=== PATIENT | male | born 1975 | race Hispanic/Latino ===

== ENCOUNTER → 2020-11-19 | Day surgery (SDC) | payer BC ==
[~2020-11-19] MED LIST: DEXAMETHASONE SOD PHOS INJ 4 MG/ML VIAL ONE; EPHEDRINE SULFATE INJ 50 MG/ML VIAL ONE; KETOROLAC TROMETHAMINE 30 MG/ML VIAL ONE; KRILL OIL500 MG; LIDOCAINE HCL 2% LOCAL INJ 5 ML SDV VIAL INJ ONE; LISINOPRIL10 MG PO; MULTI-VITAMIN1 EACH PO; NAPROSYN500 MG PO; ONDANSETRON HCL INJ 2MG/ML 2ML 2 MG/ML VIAL ONE; POVIDONE IODINE 0.05% 0.05 % ML PO ONE; PROPOFOL IV EMULSION 10 MG/ML 20 ML VIAL ONE
[2020-11-19 10:45] VITALS: BP 125/74
== END | disposition home or self-care (01) ==
LOC: OR 07:49
PROVIDERS: ATTEND Specialist
DX: S83.232A Complex tear of medial meniscus, current injury, left knee, initial encounter (principal); M23.301 Other meniscus derangements, unspecified lateral meniscus, left knee; M65.9 Synovitis and tenosynovitis, unspecified; I10 Essential (primary) hypertension; X58.XXXA Exposure to other specified factors, initial encounter; Z68.32 Body mass index [BMI] 32.0-32.9, adult
CPT/HCPCS: 29881; 93005; J0690; J1100; J1885; J2001; J2405; J2704; U0002

== ENCOUNTER 2021-07-27 10:41 | Emergency (ER) | payer BC ==
[~2021-07-27] VITALS: Ht 177.8 cm; Wt 105.0 kg
[~2021-07-27 10:41] MED LIST changes: -DEXAMETHASONE SOD PHOS INJ 4 MG/ML VIAL ONE; -EPHEDRINE SULFATE INJ 50 MG/ML VIAL ONE; -KETOROLAC TROMETHAMINE 30 MG/ML VIAL ONE; -LIDOCAINE HCL 2% LOCAL INJ 5 ML SDV VIAL INJ ONE; -ONDANSETRON HCL INJ 2MG/ML 2ML 2 MG/ML VIAL ONE; -POVIDONE IODINE 0.05% 0.05 % ML PO ONE; -PROPOFOL IV EMULSION 10 MG/ML 20 ML VIAL ONE
[2021-07-27] MEDS ORDERED: SODIUM CHLORIDE 0.9% 1000ML 1,000 ML IV STA (11:10)
[2021-07-27] MEDS ORDERED: FAMOTIDINE 20 MG/2 ML VIAL IV ONE ×2 (11:15→11:32)
[2021-07-27] MEDS ORDERED: KETOROLAC TROMETHAMINE 30 MG/ML VIAL IV ONE (11:15)
[2021-07-27] MEDS ORDERED: KETOROLAC TROMETHAMINE 30 MG/ML VIAL ONE (11:32)
[2021-07-27] MEDS ORDERED: SODIUM CHLORIDE 0.9% 1000ML 1,000 ML ONE (11:32)
[2021-07-27] MEDS ORDERED: ONDANSETRON HCL INJ 2MG/ML 2ML 2 MG/ML VIAL ONE (11:37)
[2021-07-27] MEDS ORDERED: FAMOTIDINE20 MG PO (12:26)
[2021-07-27] MEDS ORDERED: ONDANSETRON ODT4 MG PO (12:26)
[2021-07-27] MEDS ORDERED: IBUPROFEN IB200 MG PO (12:26)
[2021-07-27] MEDS ORDERED: ACETAMINOPHEN-1 EAC4 PO (12:26)
== END 2021-07-27 12:46 | disposition home or self-care (01) ==
LOC: FSED 10:49
DX: R10.31 Right lower quadrant pain (principal); N13.2 Hydronephrosis with renal and ureteral calculous obstruction; R11.2 Nausea with vomiting, unspecified; I10 Essential (primary) hypertension; K76.0 Fatty (change of) liver, not elsewhere classified; R16.1 Splenomegaly, not elsewhere classified
CPT/HCPCS: 74176; 80053; 81003; 85025; 96374; 96375; 99284; J1885; J2405; J7030

== ENCOUNTER 2021-09-16 08:00 | Outpatient (RCR) | payer BC ==
[~2021-09-16 08:00] MED LIST changes: +ACETAMINOPHEN-1 EAC4 PO; +FAMOTIDINE20 MG PO; +IBUPROFEN IB200 MG PO; +ONDANSETRON ODT4 MG PO
== END 2021-09-20 ==
LOC: PT 08:00
PROVIDERS: ATTEND Specialist
DX: M72.2 Plantar fascial fibromatosis (principal); M62.81 Muscle weakness (generalized); M79.672 Pain in left foot; M25.675 Stiffness of left foot, not elsewhere classified

== ENCOUNTER 2022-04-17 07:00 | Outpatient (RCR) | payer BC | END 2022-04-22 | LOC: PT 07:00 | PROVIDERS: ATTEND Specialist | DX: M72.2 Plantar fascial fibromatosis (principal) ==

== ENCOUNTER 2022-06-16 08:00 | Outpatient (RCR) | payer BC | END 2022-06-23 | LOC: PT 08:00 | PROVIDERS: ATTEND Specialist | DX: M72.2 Plantar fascial fibromatosis (principal) ==

== ENCOUNTER 2022-07-07 08:00 | Outpatient (RCR) | payer BC | END 2022-07-21 | LOC: PT 08:00 | PROVIDERS: ATTEND Specialist | DX: M72.2 Plantar fascial fibromatosis (principal) ==